=== PATIENT | male | born 1985 | race Caucasian/White ===

== ENCOUNTER 2016-06-14 20:32 | Emergency (ER) | payer OTHER ==
[~2016-06-14] VITALS: Ht 172.7 cm; Wt 73.9 kg
[2016-06-14 20:41] VITALS: TEMP 36.6; Ht 172.7 cm; Wt 73.9 kg
[2016-06-14 21:42] VITALS: BP 115/71; PULSE 53; O2SAT 98
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
== END 2016-06-14 22:39 | disposition home or self-care (01) ==
LOC: C.EDB 20:36 → C.EDD 22:39
DX: S06.0X0A Concussion without loss of consciousness, initial encounter (principal); S20.211A Contusion of right front wall of thorax, initial encounter; V43.52XA Car driver injured in collision with other type car in traffic accident, initial encounter

== ENCOUNTER 2016-06-21 12:26 | Emergency (ER) | payer OTHER ==
[~2016-06-21] VITALS: Ht 172.7 cm; Wt 72.2 kg
[2016-06-21 12:33] VITALS: TEMP 36.8; Ht 172.7 cm; Wt 72.2 kg
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
[2016-06-21] MEDS ORDERED: IBUP-1050 PO (12:54)
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
[2016-06-21] MEDS ORDERED: OXYC1TAB3 PO (13:31)
[2016-06-21 13:46] VITALS: BP 125/79; PULSE 56; O2SAT 98
== END 2016-06-21 14:02 | disposition home or self-care (01) ==
LOC: C.EDB 12:27 → C.EDD 14:02
DX: S22.31XA Fracture of one rib, right side, initial encounter for closed fracture (principal); V99.XXXA Unspecified transport accident, initial encounter